=== PATIENT | male | born 1975 | race Hispanic/Latino ===

== ENCOUNTER 2017-08-17 02:20 | Day surgery (SDC) | payer BC ==
[2017-08-15 11:44] LABS: HEMOGLOBIN 15.5 g/dL (13.9-16.3); MEAN CELL HGB 32.7 pg (26-34); MEAN CELL HGB CONCENTRATION 33.8 g/dL (33-37); MEAN CORP VOLUME 96.8 fL (78-100); MEAN PLATELET VOLUME 8.3 fL (7.8-11.0); WHITE BLOOD CELL 5.4 10^3/uL (4.5-11.0)
[2017-08-15 12:04] LABS: CALCIUM 9.2 mg/dL (8.4-10.5); CARBON DIOXIDE 25.3 mmol/L (20.0-32)
[~2017-08-17] VITALS: Ht 177.8 cm; Wt 88.0 kg
[2017-08-17] VITALS (11 sets, daily range): BP systolic 132–162; BP diastolic 77–93
[~2017-08-17 02:20] MED LIST: CHOL500016 PO; CYAN10002 IJ
[2017-08-17] MEDS ORDERED: LACTATED RINGERS 1,000 ML ONE (05:34)
[2017-08-17] MEDS ORDERED: ZOFRAN ONE (06:56)
[2017-08-17] MEDS ORDERED: DECADRON ONE (06:56)
[2017-08-17] MEDS ORDERED: SUBLIMAZE ONE (06:56)
[2017-08-17] MEDS ORDERED: DIPRIVAN IV ONE (06:56)
[2017-08-17] MEDS ORDERED: TORADOL ONE (06:56)
[2017-08-17] MEDS ORDERED: VERSED ONE (06:56)
[2017-08-17] MEDS ORDERED: LIDOCAINE 2% VIAL ONE (06:57)
[2017-08-17] MEDS ORDERED: DURAMORPH ONE (06:57)
[2017-08-17] MEDS ORDERED: LACTATED RINGERS 1,000 ML IV SCH (08:00)
[2017-08-17] MEDS ORDERED: NS 3000ML IRR IR ONE (09:35)
[2017-08-17] MEDS ORDERED: XYLOCAINE 2%-EPI 1:100,000 ONE (09:35)
[2017-08-17] MEDS ORDERED: SODIUM CHLORIDE IR ONE (09:35)
[2017-08-17] MEDS ORDERED: KENALOG-40 ONE (09:48)
[2017-08-17] MEDS ORDERED: TRAM-47 PO (09:48)
[2017-08-17] MEDS ORDERED: ULTRAM PO ONE (11:30)
[2017-08-17] MEDS ORDERED: ULTRAM ONE (11:38)
--- NOTE | 2017-08-17 14:01 | OPH ---
DATE OF SURGERY: 08/17/2017 PREOPERATIVE DIAGNOSES: 1. Osteoarthritis of the right knee. 2. Osteoarthritis, left knee. POSTOPERATIVE DIAGNOSES: 1. Osteoarthritis, right knee. 2. Medial and lateral meniscal tears, left knee. 3. Osteoarthritis, left knee. 4. Synovitis, left knee. OPERATIVE PROCEDURE: 1. Cortisone injection, right knee. 2. Arthroscopy of the left knee with partial medial and lateral meniscectomies 3. Major synovectomy. 4. Chondroplasty of the lateral femoral condyle. SURGEON: Marvel Bynum MD ANESTHESIA: LMA. TOURNIQUET TIME: None. BLOOD LOSS: 20 mL. DESCRIPTION OF INDICATIONS: The patient is a 42-year-old male. He has had painful popping and swelling about the left knee for the last 6-7 years. The patient is no better with anti-inflammatories as well as cortisone injections and bracing. Over the last 2-3 months, his symptoms are getting worse. Again, he has painful mechanical symptoms as well as recurrent swelling about the knee. He had an ACL reconstruction done back in the late 80s. The patient's x-rays showed some lateral compartment narrowing. His exam showed a 2+ effusion, full range of motion, moderate crepitation, good medial and lateral stability. The MRI scan showed some OA about the left knee. His ACL graft was intact. There was a question of a lateral meniscal tear. Because of the painful mechanical symptoms about the left knee, the patient was taken to the operating room for arthroscopy. The right knee was injected with cortisone at the patient's request. DESCRIPTION OF PROCEDURE: The patient was placed in the operating table in the supine position. LMA anesthetic was induced without difficulty. The patient had the left thigh padded and the left lower extremity was sterilely prepped and draped. The patient had the arthroscopy portals made superolateral, anterolateral and anteromedial. Arthroscope was introduced into the suprapatellar pouch. He had extensive hypertrophic synovium throughout the suprapatellar pouch as well as the medial and lateral gutters. He had some small osteophytes about the peripheral edges of the medial and lateral femoral condyles. There were no loose bodies noted. The articular cartilage about the patellofemoral joint was normal, about the patella as well as the femoral sulcus. The patient had the medial compartment entered. He had good articular cartilage about the medial compartment, both proximally and distally. He had a tear of the anterior horn of his medial meniscus that was removed with a shaver. The posterior horn and the middle horn were normal to probing as well as visualization. The patient then had the intercondylar notch viewed. There was quite a bit of hypertrophic synovium. A shaver was used to perform a synovectomy. The anterior cruciate ligament graft was intact with no laxity. The PCL was intact. The knee was then placed in a [id number] position. The lateral compartment was entered. He had a tear of the anterior and the posterior horns of the lateral meniscus. The tears had a partial meniscectomy performed with the shaver anteriorly and posteriorly about the lateral meniscus. The patient was completely [id number] diffusely about the distal lateral femoral condyle as well as the lateral tibial plateau. Chondroplasty was performed of any loose articular cartilage proximally and distally about the lateral compartment. The patient then had the arthroscopic equipment removed from the knee. The portal tracts were closed with 3-0 Ethilon in an interrupted manner. A compressive dressing was applied. The patient was extubated in the operating room, sent to recovery in stable condition. Marvel Bynum MD DR: RADHA/kathleen JOB# [id number]
== END 2017-08-17 12:40 | disposition home or self-care (01) ==
LOC: SDC 02:20
PROVIDERS: ATTEND Orthopaedic Surgery
DX: M17.12 Unilateral primary osteoarthritis, left knee (principal); M17.11 Unilateral primary osteoarthritis, right knee; M65.862 Other synovitis and tenosynovitis, left lower leg; E66.3 Overweight; S83.242A Other tear of medial meniscus, current injury, left knee, initial encounter; S83.282A Other tear of lateral meniscus, current injury, left knee, initial encounter; X58.XXXA Exposure to other specified factors, initial encounter; Y93.89 Activity, other specified; Y92.89 Other specified places as the place of occurrence of the external cause; Y99.8 Other external cause status; Z72.89 Other problems related to lifestyle; F17.210 Nicotine dependence, cigarettes, uncomplicated; Z83.3 Family history of diabetes mellitus; Z68.27 Body mass index [BMI] 27.0-27.9, adult; Z98.890 Other specified postprocedural states
CPT/HCPCS: 20610; 29876; 29880; 36415; 80053; 85027; A4649 ×2; J1100; J1885; J2001; J2250; J2405; J3010; J3301; J3490; J7030 ×2; J7120; J2274

== ENCOUNTER 2017-12-25 00:44 | Day surgery (SDC) | payer BC ==
[2017-12-25] VITALS (9 sets, daily range): BP systolic 128–143; BP diastolic 56–97
[~2017-12-25] VITALS: Ht 177.8 cm; Wt 88.0 kg
[~2017-12-25 00:44] MED LIST changes: +TRAM-47 PO
[2017-12-25] MEDS ORDERED: LACTATED RINGERS 1,000 ML ONE ×2 (06:00→06:54)
[2017-12-25] MEDS ORDERED: LIDOCAINE 2% VIAL ONE (06:53)
[2017-12-25] MEDS ORDERED: VERSED ONE (06:53)
[2017-12-25] MEDS ORDERED: ZOFRAN ONE (06:53)
[2017-12-25] MEDS ORDERED: DECADRON ONE (06:53)
[2017-12-25] MEDS ORDERED: DIPRIVAN IV ONE (06:54)
[2017-12-25] MEDS ORDERED: DILAUDID ONE ×2 (06:54→10:08)
[2017-12-25] MEDS ORDERED: SUBLIMAZE ONE (06:54)
[2017-12-25] MEDS ORDERED: NS 3000ML IRR IR ONE (06:58)
[2017-12-25] MEDS ORDERED: SODIUM CHLORIDE IR ONE (06:58)
[2017-12-25] MEDS ORDERED: XYLOCAINE 2%-EPI 1:100,000 ONE (07:09)
[2017-12-25] MEDS ORDERED: LACTATED RINGERS 1,000 ML IV SCH (07:30)
[2017-12-25] MEDS ORDERED: TORADOL ONE (08:15)
[2017-12-25] MEDS ORDERED: VENTOLIN IH PRN (10:30)
[2017-12-25] MEDS ORDERED: DILAUDID IV PRN (10:30)
[2017-12-25] MEDS ORDERED: PHENERGAN IV PRN (10:30)
[2017-12-25] MEDS ORDERED: BENADRYL IV PRN (10:30)
[2017-12-25] MEDS ORDERED: ZOFRAN IV PRN (10:30)
[2017-12-25] MEDS ORDERED: TRAM-47 PO (10:49)
[2017-12-25] MEDS ORDERED: ULTRAM ONE (11:10)
[2017-12-25] MEDS ORDERED: ULTRAM PO PRN (11:30)
--- NOTE | 2017-12-25 12:20 | OPH ---
DATE OF SURGERY: 12/25/2017 PREOPERATIVE DIAGNOSES: 1. Osteoarthritis, right knee. 2. Medial meniscal tear, right knee. POSTOPERATIVE DIAGNOSES: 1. Osteoarthritis, right knee. 2. Medial meniscal tear, right knee. OPERATIVE PROCEDURE: 1. Arthroscopy of the right knee with partial medial meniscectomy. 2. Chondroplasty with a microfracture technique of the medial femoral condyle as well as the medial tibial plateau and the femoral sulcus. SURGEON: Marvel Bynum MD ANESTHESIA: LMA. TOURNIQUET TIME: None. BLOOD LOSS: 30 mL. DESCRIPTION OF INDICATIONS: The patient is a 42-year-old male with painful popping and catching as about the right knee for the last 6 months. The patient has tried anti-inflammatories in the past as well as cortisone injections, therapy and bracing. The patient has 2+ effusion about the right knee, full range of motion, tenderness about the medial compartment. The patient's x-rays are negative; however, the MRI scan shows that he has a tear of the posterior horn of his medial meniscus with some exposed subchondral bone about a small area of the medial femoral condyle and the medial tibial plateau. The patient is having significant pain and was limited in his daily activities, especially working and therefore was taken to the operating room for the above procedure. DESCRIPTION OF PROCEDURE: The patient was placed on the operating table in the supine position. LMA anesthetic was induced without difficulty. The patient had the right thigh padded. Right lower extremity was sterilely prepped and draped. Arthroscopy portals were made superolateral, anterolateral and anteromedial. The patient's suprapatellar pouch was viewed. He had normal cartilage about the patella. There is some hypertrophic synovium about the suprapatellar pouch that was debrided with the shaver. The patient's femoral sulcus had an area circular in configuration about the center portion of his femoral sulcus that had loose articular cartilage. It was debrided and basically was a circular area about 5 mm in diameter. We used a 30-degree awl and did a microfracture technique about the femoral sulcus. The medial and lateral gutters did not show any osteophytes or loose bodies. The medial compartment was entered and he had an area about the weightbearing portion of the distal medial femoral condyle that had exposed subchondral bone over an area that was approximately 10 mm in width and approximately 20 mm in length, anterior to posterior. He also had a small area beneath the middle horn of his medial meniscus that was about 5 x 5 mm with exposed subchondral bone. The patient had a tear of the posterior horn of his medial meniscus. A partial medial meniscectomy was performed of the posterior horn. A shaver was used to debride any loose articular cartilage about the area of exposed subchondral bone in the medial femoral condyle as well as the medial tibial plateau. Using a 30-degree awl, a microfracture technique was performed in both of these areas. Any loose articular cartilage and loose bone fragments were removed with the shaver. The intercondylar notch was then viewed. The anterior and posterior cruciate ligaments were normal. The lateral compartment was viewed in the [id number] position. The lateral articular cartilage was normal and his lateral meniscus was normal. The patient then had the arthroscopic equipment removed from the knee. The portal tracts were closed with 3-0 Ethilon. A compressive dressing was applied. The patient was extubated in the operating room and sent to recovery in stable condition. Marvel Bynum MD DR: RADHA/kathleen JOB# [id number]
== END 2017-12-25 11:59 | disposition home or self-care (01) ==
LOC: SURG 00:44
PROVIDERS: ATTEND Orthopaedic Surgery
DX: M23.203 Derangement of unspecified medial meniscus due to old tear or injury, right knee (principal); M67.261 Synovial hypertrophy, not elsewhere classified, right lower leg; M17.11 Unilateral primary osteoarthritis, right knee; F17.210 Nicotine dependence, cigarettes, uncomplicated; E66.3 Overweight; Z68.27 Body mass index [BMI] 27.0-27.9, adult; Z79.899 Other long term (current) drug therapy; Z98.890 Other specified postprocedural states; Z72.89 Other problems related to lifestyle; Z83.3 Family history of diabetes mellitus; Z82.49 Family history of ischemic heart disease and other diseases of the circulatory system
CPT/HCPCS: 29879; 29881; A4649 ×4; J1100; J1885; J2001; J2250; J2405; J3010; J3490; J7030 ×2; J7120 ×2